=== PATIENT | female | born 1965 | race Caucasian/White ===

== ENCOUNTER → 2016-07-16 | Outpatient (CLI) | payer OTHER ==
[2013-07-01 17:05] VITALS: BP 124/78
[~2016-07-16] MED LIST: ESTRACE0.5 MG PO; GLIPIZIDE ER10 MG PO; KETOROLAC10 MG PO; LEVOTHYROXINE0.1 MG PO; METFORMIN850 MG PO; NORCO 325 MG-51 TA1 PO
== END ==
LOC: RAD 09:56 → EDSTATUS 09:58 → RAD 15:50
DX: Z12.31 Encounter for screening mammogram for malignant neoplasm of breast (principal)
CPT/HCPCS: G0202

== ENCOUNTER → 2017-06-08 | Outpatient (CLI) | payer SELFPAY ==
[2013-07-01 17:05] VITALS: BP 124/78
== END ==
LOC: MAMMO 07:09
DX: N64.4 Mastodynia (principal); N64.59 Other signs and symptoms in breast